=== PATIENT | female | born 2000 | race Caucasian/White ===

== ENCOUNTER 2020-11-08 19:08 | Emergency (ER) | payer OTHER ==
[~2020-11-08 19:08] MED LIST: AUGMENTIN 875-1 EACH PO; BENTYL10 MG PO; CEFDINIR300 MG PO; CIPRO500 M1 PO; FIORICET1 EACH PO; IBUPROFEN800 MG PO; IMODIUM2 MG PO; PREDNISONE 20MG20 MG PO; PROAIR HFA8.5 GM INH; ZOFRAN4 MG PO; ZOFRAN4 MG SL; ZOFRAN8 MG PO
[2020-11-08 19:58] LABS: BASOPHIL 0.6 % (0-2); EOSINOPHIL 1.1 % (0-5); HGB 15.6 g/dl (12.5-16.0); LYMPHOCYTE 29.9 % (15-48); MCH 30.8 pg (25.0-31.0); MCHC 33.9 g/dL (32.0-36.0); MCV 90.7 fL (78.0-100.0); MONOCYTE 9.4 % (0-12); MPV 11.7 fL (6.0-9.5); NEUTROPHIL 58.7 % (41-80); NRBC 0; PLT 262 K/uL (150-400); RBC 5.07 M/uL (4.20-5.40); RDW 12.8 % (11.5-14.0); WBC 9.8 K/uL (4.0-10.5)
[2020-11-08 20:00] LABS: BILIRUBIN NEGATIVE (NEGATIVE); BLOOD NEGATIVE Ery/uL (NEGATIVE); CLARITY HAZY (CLEAR); COLOR YELLOW (YELLOW); GLUCOSE (U) NORMAL (NORMAL); LEUKOCYTES NEGATIVE Leu/uL (NEGATIVE); NITRITE NEGATIVE (NEGATIVE); PROTEIN NEGATIVE (NEGATIVE); UROBILINOGEN 0.2 mg/dL (0.2-1.0)
[2020-11-08 20:08] LABS: ALBUMIN 4.4 g/dL (3.4-5.0); BUN/CREAT RATIO (CALC) 15.9 RATIO; CREATININE 0.69 mg/dL (0.51-0.95); GLOBULIN (CALCULATION) 3.6 g/dL; POTASSIUM 3.6 mmol/L (3.5-5.1)
[2020-11-08] MEDS ORDERED: PROTONIX 40MG T40 MG PO (22:09)
[2020-11-08] MEDS ORDERED: CARAFATE1 GM PO (22:09)
[2020-11-08] MEDS ORDERED: ONDANSETRON ODT4 MG SL (22:09)
== END 2020-11-08 22:25 | disposition home or self-care (01) ==
LOC: FER 19:08
PROVIDERS: Emergency Medicine Emergency Medical Services
DX: R10.13 Epigastric pain (principal); R11.2 Nausea with vomiting, unspecified; F17.210 Nicotine dependence, cigarettes, uncomplicated; Z87.19 Personal history of other diseases of the digestive system; Z88.5 Allergy status to narcotic agent
CPT/HCPCS: 36415; 80053; 81003; 83690; 85025; 87339; J1885; J2270; J2405; J7030; Q9967

== ENCOUNTER 2020-11-26 17:20 | Emergency (ER) | payer OTHER ==
[~2020-11-26 17:20] MED LIST changes: +CARAFATE1 GM PO; +ONDANSETRON ODT4 MG SL; +PROTONIX 40MG T40 MG PO
[2020-11-26 19:01] LABS: BASOPHIL 0.2 % (0-2); EOSINOPHIL 0.1 % (0-5); HCT 44.3 % (37.0-47.0); HGB 15.4 g/dl (12.5-16.0); LYMPHOCYTE 6.2 % (15-48); MCHC 34.8 g/dL (32.0-36.0); MCV 89.1 fL (78.0-100.0); MONOCYTE 9.7 % (0-12); MPV 11.9 fL (6.0-9.5); NEUTROPHIL 83.4 % (41-80); NRBC 0; PLT 212 K/uL (150-400); RBC 4.97 M/uL (4.20-5.40); RDW 12.4 % (11.5-14.0); WBC 11.3 K/uL (4.0-10.5)
[2020-11-26 19:04] LABS: BILIRUBIN 1+ mg/dL (NEGATIVE); BLOOD TRACE-INTACT Ery/uL (NEGATIVE); CLARITY CLEAR (CLEAR); COLOR YELLOW (YELLOW); GLUCOSE (U) NORMAL (NORMAL); LEUKOCYTES NEGATIVE Leu/uL (NEGATIVE); NITRITE NEGATIVE (NEGATIVE); PROTEIN TRACE (LOW) mg/dL (NEGATIVE); SPECIFIC GRAVITY >=1.030 (1.001-1.030); UROBILINOGEN 0.2 mg/dL (0.2-1.0)
[2020-11-26 19:11] LABS: BACTERIA 2+; SQUAMOUS EPITHELIAL CELLS 20-50
[2020-11-26 19:13] LABS: ALBUMIN 3.9 g/dL (3.4-5.0); BILIRUBIN - TOTAL 0.7 mg/dL (0.2-1.0); BUN/CREAT RATIO (CALC) 20.5 RATIO; CREATININE 0.73 mg/dL (0.51-0.95); GLOBULIN (CALCULATION) 3.3 g/dL; POTASSIUM 3.9 mmol/L (3.5-5.1); TOTAL PROTEIN 7.2 g/dL (6.4-8.2)
[2020-11-26] MEDS ORDERED: IMODIUM2 MG PO (21:30)
[2020-11-26] MEDS ORDERED: PHENERGAN25 M1 PO (21:30)
[2020-11-26] MEDS ORDERED: BENTYL10 MG PO (21:30)
== END 2020-11-26 21:50 | disposition home or self-care (01) ==
LOC: FER 17:20
PROVIDERS: Emergency Medicine
DX: R11.2 Nausea with vomiting, unspecified (principal); R19.7 Diarrhea, unspecified; R10.9 Unspecified abdominal pain; R63.0 Anorexia; F17.200 Nicotine dependence, unspecified, uncomplicated
CPT/HCPCS: 36415; 80053; 81001; 82150; 82728; 83615; 83690; 85025; 86140; 87339; J1170; J2405; J7030; Q9967

== ENCOUNTER 2021-12-10 00:40 | Emergency (ER) | payer OTHER ==
[~2021-12-10 00:40] MED LIST changes: +PHENERGAN25 M1 PO
[2021-12-10] MEDS ORDERED: MEDROL 4MG DOSEP4 MG PO (01:18)
[2021-12-10] MEDS ORDERED: FLEXERIL5 MG PO (01:18)
== END 2021-12-10 01:33 | disposition home or self-care (01) ==
LOC: FER 00:40
DX: M54.12 Radiculopathy, cervical region (principal); F17.200 Nicotine dependence, unspecified, uncomplicated; Z88.5 Allergy status to narcotic agent
CPT/HCPCS: 99283; J7512